=== PATIENT | female | born 1960 | race Caucasian/White ===

== ENCOUNTER 2023-12-21 18:54 | Emergency (ER) | payer BC ==
[~2023-12-21] VITALS: Ht 167.6 cm; Wt 111.1 kg
[2023-12-21 18:55] VITALS: BP 116/80; PULSE 75; RESP 16; TEMP 98; O2SAT 95
[2023-12-21] MEDS ORDERED: CEPH-585 PO (20:46)
[2023-12-21] MEDS: TETanus/Pertussis (Acell)/Diphther VAC/PF (Tdap-Adult) 0.5ml syringe IMVAC ONE (20:55)
== END 2023-12-21 21:03 | disposition home or self-care (01) ==
LOC: ER 18:55
DX: S61.217A Laceration without foreign body of left little finger without damage to nail, initial encounter (principal); Z79.899 Other long term (current) drug therapy; W45.8XXA Other foreign body or object entering through skin, initial encounter; Y93.89 Activity, other specified; Y92.89 Other specified places as the place of occurrence of the external cause; Y99.8 Other external cause status
CPT/HCPCS: 12001; 90471; 90715; 99283